=== PATIENT | male | born 1955 | race Caucasian/White ===

== ENCOUNTER 2019-05-12 13:18 | Emergency (ER) | payer MEDICARE ==
[~2019-05-12] VITALS: Ht 175.3 cm; Wt 72.6 kg
[2019-05-12] MEDS ORDERED: Ultram50 MG PO (15:09)
== END 2019-05-12 15:46 | disposition home or self-care (01) ==
LOC: ER 13:18
DX: S01.21XA Laceration without foreign body of nose, initial encounter (principal); S20.219A Contusion of unspecified front wall of thorax, initial encounter; M25.551 Pain in right hip; F10.129 Alcohol abuse with intoxication, unspecified; F17.200 Nicotine dependence, unspecified, uncomplicated; Z88.0 Allergy status to penicillin; W01.10XA Fall on same level from slipping, tripping and stumbling with subsequent striking against unspecified object, initial encounter
CPT/HCPCS: 12011; 73030; 99284-25